=== PATIENT | female | born 1995 | race African-American/Black ===

== ENCOUNTER 2024-03-04 19:00 | Emergency (ER) | payer OTHER ==
[~2024-03-04] VITALS: Ht 157.5 cm; Wt 77.6 kg
[2024-03-04 19:41] LABS: BASO % 0.2 % (0.0-1.0); EOS # 0.1 10^3/uL (0.0-0.5); EOS % 0.3 % (0.0-3.0); HEMATOCRIT 34.6 % (36.0-47.0); LYMPH # 2.5 10^3/uL (1.5-5.0); LYMPH % 13.7 % (24.0-44.0); MEAN CORPUSCULAR HEMOGLOBIN 28.7 pg (27.0-33.0); MEAN CORPUSCULAR HGB CONC 34.7 g/dl (32.0-36.5); MEAN CORPUSCULAR VOLUME 82.8 fl (80.0-96.0); MONO % 16.4 % (2.0-8.0); NEUTROPHILS # 12.8 10^3/uL (1.5-8.5); NEUTROPHILS % 68.9 % (36.0-66.0); PLATELET COUNT, AUTOMATED 339 10^3/uL (150-450); RED BLOOD COUNT 4.18 10^6/uL (4.00-5.40); WHITE BLOOD COUNT 18.6 10^3/uL (4.0-10.0)
[2024-03-04 20:10] LABS: BILIRUBIN,DIRECT 0.2 MG/DL (<0.4); BILIRUBIN,TOTAL 0.7 MG/DL (0.3-1.2); TOTAL PROTEIN 7.2 G/DL (5.7-8.2)
[2024-03-04] MEDS: ACETAMINOPHEN TAB 650MG DOSE (2X325MG) PO ONE (20:24)
[2024-03-04] MEDS: NS 1,000 ML IV SCH (20:27)
[2024-03-04] MEDS ORDERED: ONDANSETRON 4MG 2ML VIAL As Ordered ONE (20:29)
[2024-03-04] MEDS: ONDANSETRON 4MG 2ML VIAL IV ONE (20:30)
[2024-03-04] MEDS ORDERED: ISOVUE-370 76% 100ML VIAL As Ordered ONE (21:18)
[2024-03-04] MEDS: PIPERACILLIN/TAZOBACTAM SOD 4.5 GM in D5W MINI-BAG PLUS 50 ML IV ONE (21:31)
[2024-03-04] MEDS ORDERED: BACT800T5 PO (23:04)
[2024-03-04] MEDS ORDERED: ONDA-282 PO (23:04)
[2024-03-04] MEDS ORDERED: IBUP-1022 PO (23:04)
[2024-03-04 23:16] VITALS: BP 114/72; TEMP 99.1; O2SAT 100
== END 2024-03-04 23:18 | disposition home or self-care (01) ==
LOC: M ED 19:00
DX: N10 Acute pyelonephritis (principal); Z79.1 Long term (current) use of non-steroidal anti-inflammatories (NSAID); Z79.899 Other long term (current) drug therapy
CPT/HCPCS: 74177; 80047; 80076; 81001; 83605; 83690; 84702; 85025; 87040; 87088; 87186; 87486; 87581; 87633; 87798; 96361; 96365; 96366; 96374; 99284; J2405; J2543; Q9967